=== PATIENT | male | born 1960 | race Caucasian/White ===

== ENCOUNTER → 2016-07-13 | Outpatient (CLI) | payer OTHER ==
[~2016-07-13] MED LIST: ACETAMINOPHEN PO; AMITRYPTYLINE PO; ASPIRIN PO; AUGMENTIN875 MG PO; BACTRIM DS TABL1 TA1 PO; CARVEDILOL3.125 MG PO; CLOPIDOGREL BIS75 MG PO; ESCITALOPRAM OX10 MG PO; FISH OIL 1,001000 MG PO; HCTZ PO; K-DUR10 MEQ PO; LIPITOR PO; LIPITOR80 MG PO; LISINOPRIL PO; MILK OF MAGNESIA PO; MULTI VITAMIN1 EACH PO; MULTI-DAY VITAM1 TAB PO; OMEPRAZOLE40 M1 PO; PHENERGAN W/CO120 ML PO; PRILOSEC20 M1 PO; TRAMADOL HCL50 M1 PO; TYLENOL #3 PO; VITAMIN D1000 UNIT PO; ZESTORETIC 20/21 TAB PO; ZOCOR PO; [UNRECOGNIZED DRUG - OTHER]
[2016-07-13 10:10] LABS: HEMOGLOBIN 13.4 gm/dL (13.0-16.0); MEAN CELL VOLUME 82.7 FL (83-96); MEAN CORPUSCULAR HEMOGLOBIN 27.6 PG (28-34); MEAN CORPUSCULAR HGB CONC 33.4 g/dL (30-36); MEAN PLATELET VOLUME 7.5 FL (6.5-11.5); RED BLOOD COUNT 4.84 X10e (3.90-5.60); RED CELL DISTRIBUTION WIDTH 13.6 % (11.0-15.5); WHITE BLOOD COUNT 6.8 X10e3 (4.0-10.5)
[2016-07-13 10:54] LABS: BLOOD UREA NITROGEN 20 mg/dL (9-23); CALCIUM SERUM 9.2 mg/dL (8.4-10.2); CARBON DIOXIDE 30 mmol/L (22-31); CHLORIDE 100 mmol/L (100-111); GLOM FILT RATE Estimated ABOVE60 mL/min (>60); GLUCOSE FASTING 127 mg/dL (70-110); POTASSIUM 4.3 mmol/L (3.5-5.1); SODIUM 137 mmol/L (135-145)
== END | disposition home or self-care (01) ==
LOC: CLAB 09:28
PROVIDERS: Anesthesiology
DX: Q64.33 Congenital stricture of urinary meatus (principal)
CPT/HCPCS: 36415; 80048; 85027

== ENCOUNTER 2016-12-02 10:42 | Emergency (ER) | payer OTHER ==
[~2016-12-02] VITALS: Ht 180.3 cm; Wt 133.8 kg
--- NOTE | ~2016-12-02 | CR111 ---
[facility] A Service of [facility] & [facility] RADIOLOGY TEXT RESULTS PATIENT: ELEAZAR ROJAS JR LOCATION: SED : 62 UNIT #: [id number] AGE: [address]: AREN GEORGE SEX: M ORDER DR: [id number] [id number] E MR#: [id number] Acc #: [id number] NAME: ELEAZAR ROJAS JR : 1960 SEX: M STUDY DATE/TIME: 12/02/2016 10:54 UNIT: SED ROOM: STUDY DESCRIPTION: CR Finger 2 View 3rd Rt Attending Physician: Aren George Ordering Physician: Aren George Primary Care Physician: Ambroico Syed D.O. MEDICAL IMAGING REPORT This report is preliminary unless electronic signature is present. EXAM Right third finger 12/02/2016 10:54 hours. HISTORY Patient jammed third finger on floor 30 minutes prior to admission today. Finger pain. FINDINGS AP, lateral and oblique views of the right third finger demonstrate flexion at the distal interphalangeal joint, which could be voluntary but could also indicate ligamentous injury. There is no fracture or foreign body seen. IMPRESSION There is flexion at the distal interphalangeal joint of the third finger on all 3 projections, which could be positional but could also indicate ligamentous injury. No definite fracture is seen. Dictated by... Rianna Olea M.D. THIS IS AN ELECTRONICALLY VERIFIED REPORT Rianna Olea M.D. at 12/02/2016 8:27 PM SMM/gz TD: 12/02/2016 15:38 JOB #: [id number] MEDICAL IMAGING REPORT Page 1 of 1
== END 2016-12-02 12:04 | disposition home or self-care (01) ==
LOC: SED 10:42
DX: S63.612A Unspecified sprain of right middle finger, initial encounter (principal); I10 Essential (primary) hypertension; F41.9 Anxiety disorder, unspecified; K21.9 Gastro-esophageal reflux disease without esophagitis; Z86.73 Personal history of transient ischemic attack (TIA), and cerebral infarction without residual deficits; Z88.6 Allergy status to analgesic agent; X58.XXXA Exposure to other specified factors, initial encounter; Y92.009 Unspecified place in unspecified non-institutional (private) residence as the place of occurrence of the external cause
CPT/HCPCS: 29130; 73140; 99283